=== PATIENT | male | born 1965 | race Caucasian/White ===

== ENCOUNTER → 2016-11-30 | Outpatient (CLI) | payer OTHER ==
[~2016-11-30] MED LIST: GADOBUTROL 10 ML VIAL IVP ONE
== END ==
LOC: FIMAGING 18:42
PROVIDERS: ATTEND Family Medicine
DX: R20.2 Paresthesia of skin (principal); Z09 Encounter for follow-up examination after completed treatment for conditions other than malignant neoplasm; M50.322 Other cervical disc degeneration at C5-C6 level; J32.0 Chronic maxillary sinusitis; J34.1 Cyst and mucocele of nose and nasal sinus
CPT/HCPCS: A9585